=== PATIENT | male | born 1980 | race Hispanic/Latino ===

== ENCOUNTER 2020-08-12 14:51 | Emergency (ER) | payer SELFPAY ==
--- NOTE | 2020-08-12 15:48 | RAD REPORT ---
EXAM DESCRIPTION: CT - Head Brain Wo Cont - 08/12/2020 3:37 pm CLINICAL HISTORY: Near syncope Headache, drowsiness COMPARISON: <Comparisons> TECHNIQUE: All CT scans are performed using dose optimization technique as appropriate and may inclu de automated exposure control or mA/KV adjustment according to patient size. FINDINGS: No intracranial hemorrhage, hydrocephalus or extra-axial fluid collection.No areas of brai n edema or evidence of midline shift. The paranasal sinuses and mastoids are clear. The calvarium is intact. IMPRESSION: No acute intracranial abnormality.
--- NOTE | 2020-08-12 16:03 | RAD REPORT ---
EXAM DESCRIPTION: RAD - Chest Single View - 08/12/2020 3:48 pm CLINICAL HISTORY: Near syncope Chest pain. COMPARISON: <Comparisons> FINDINGS: Portable technique limits examination quality. The lungs are grossly clear. The heart is normal in size. No displaced fractures. IMPRESSION: No acute intrathoracic process suspected.
[2020-08-12 17:25] LABS: Protime INR 1.13
[2020-08-12 17:27] LABS: Absolute Lymphocytes (CBC) 1.9 K/uL (0.7-4.9); Basophils % 0.5 % (0-1.3); Hematocrit 45.3 % (39.6-49.0); Lymphocytes % 17.2 % (15.3-44.8); MPV 8.4 fL (7.6-11.3); RBC Red Blood Cell Count 5.34 M/uL (4.33-5.43)
[2020-08-12 17:36] LABS: ALT/SGPT 64 U/L (12-78); AST/SGOT 34 U/L (15-37); Alkaline Phosphatase 118 U/L (45-117); BUN Blood Urea Nitrogen 13 mg/dL (7-18); Bicarbonate 26 mmol/L (21-32); Bilirubin Direct < 0.1 mg/dL (0-0.2); Bilirubin Total 0.4 mg/dL (0.2-1.0); Glucose Level 85 mg/dL (74-106); Magnesium 2.2 mg/dL (1.8-2.4); NT PRO-BNP 41 pg/mL (<125); Potassium 3.5 mmol/L (3.5-5.1); Sodium Level 142 mmol/L (136-145); Troponin (Emerg Dept Use Only) < 0.02 ng/mL (0.0-0.045)
--- NOTE | 2020-08-12 18:01 | ER ---
Nurse's Notes [facility] Name: Neri Jim Age: 40 yrs Sex: Male : 1980 Arrival Date: 08/12/2020 Time: 14:57 Bed 7 Private MD: Diagnosis: Syncope Near Presentation: 08/12 15:14 Chief complaint: EMS states: Near syncopal episode. Coronavirus screen: Client denies kg travel out of the [place] in the last 14 days. At this time, unable to obtain information related to travel outside the [place] At this time, the client does not indicate any symptoms associated with coronavirus-19. Ebola Screen: Patient negative for fever greater than or equal to 101.5 degrees Fahrenheit, and additional compatible Ebola Virus Disease symptoms Patient denies exposure to infectious person. Patient denies travel to an Ebola-affected area in the 21 days before illness onset. Initial Sepsis Screen: Does the patient meet any 2 criteria? HR > 90 bpm. Does the patient have a suspected source of infection? No. Patient's initial sepsis screen is negative. Risk Assessment: Do you want to hurt yourself or someone else? Patient reports no desire to harm self or others. Onset of symptoms was August 12, 2020. 15:14 Method Of Arrival: EMS: [facility] kg 15:14 Acuity: JORDIN 3 kg Triage Assessment: 15:17 General: Appears in no apparent distress. Behavior is calm, cooperative, appropriate kg for age, quiet. Pain: Denies pain. Historical: - Allergies: 15:18 No Known Allergies; kg - Home Meds: 15:18 None [Active]; kg - PMHx: 15:18 None; kg - PSHx: 15:18 None; kg - Immunization history:: Adult Immunizations up to date, Client reports receiving the 2nd dose of the Covid vaccine. - Social history:: Smoking status: Patient denies any tobacco usage or history of. Screenin:17 Abuse screen: Denies threats or abuse. Denies injuries from another. Nutritional kg screening: No deficits noted. Tuberculosis screening: No symptoms or risk factors identified. Fall Risk None identified. No fall in past 12 months (0 pts). No secondary diagnosis (0 pts). IV access (20 points). Ambulatory Aid- None/Bed Rest/Nurse Assist (0 pts). Gait- Normal/Bed Rest/Wheelchair (0 pts) Mental Status- Oriented to own ability (0 pts). Total [place] Fall Scale indicates No Risk (0-24 pts). Assessment: 17:04 General: Appears in no apparent distress. Behavior is calm, cooperative, appropriate ll1 for age. Pain: Denies pain. Neuro: Level of Consciousness is awake, alert, obeys commands, Oriented to person, place, time, situation, Appropriate for age Mobile Web Application Developer are equal bilaterally Moves all extremities. Full function Gait is steady, Speech is normal, Facial symmetry appears normal, Reports a syncopal episode weakness. 18:00 Reassessment: No changes from previously documented assessment. Patient and/or family ll1 updated on plan of care and expected duration. Pain level reassessed. 18:48 Reassessment: No changes from previously documented assessment. Patient and/or family ll1 updated on plan of care and expected duration. Pain level reassessed. Patient is alert, oriented x 3, equal unlabored respirations, skin warm/dry/pink. Vital Signs: 15:14 BP 168 / 123; Pulse 105; Resp 21; Temp 98.7(O); Pulse Ox 97% on R/A; Weight 81.65 kg kg (R); Height 5 ft. 6 in. (167.64 cm) (R); Pain 0/10; 17:01 BP 159 / 106; Pulse 90; Resp 18; Pulse Ox 95% on R/A; ll1 18:47 BP 169 / 108; Pulse 91; Resp 18; Temp 98.0; Pulse Ox 98% ; ll1 15:14 Body Mass Index 29.05 (81.65 kg, 167.64 cm) kg ED Course: 14:57 Patient arrived in ED. ds1 15:17 Triage completed. kg 15:18 Star Allen NP is PHCP. pm1 15:18 Allan Anthony MD is Attending Physician. pm1 15:18 Arm band placed on left wrist. kg 15:18 No provider procedures requiring assistance completed. Maintain EMS IV. Dressing kg intact. Good blood return noted. Site clean \T\ dry. Gauge \T\ site: 20 G right wrist. 15:19 Patient has correct armband on for positive identification. kg 15:37 CT Head Brain wo Cont In Process Unspecified. EDMS 15:44 XRAY Chest (1 view) In Process Unspecified. EDMS 16:41 Patient placed in an exam room, on a stretcher. 17:00 Flower Nielson, RN is Primary Nurse. ll1 17:01 IV discontinued, intact, bleeding controlled, No redness/swelling at site. Pressure ll1 dressing applied. 17:02 Inserted saline lock: 22 gauge in right antecubital area, using aseptic technique. ll1 Blood collected. 18:48 IV discontinued, intact, bleeding controlled, No redness/swelling at site. Pressure ll1 dressing applied. Administered Medications: 16:41 Drug: NS 0.9% 1000 ml Route: IV; Rate: 1000 ml; Site: right forearm; sv 17:53 Follow up: Response: No adverse reaction; RASS: Alert and Calm (0); IV Status: ll1 Completed infusion; IV Intake: 1000ml 17:53 Drug: NS 0.9% 1000 ml Route: IV; Rate: 1000 ml; Site: right antecubital; ll1 18:47 Follow up: Response: No adverse reaction; IV Status: Completed infusion; IV Intake: ll1 1000ml Intake: 17:53 IV: 1000ml; Total: 1000ml. ll1 18:47 IV: 1000ml; Total: 2000ml. 1 Outcome: 18:00 Discharge ordered by MD. pm1 18:48 Discharged to home ambulatory. ll1 18:48 Condition: stable 18:48 Discharge instructions given to patient, Instructed on discharge instructions, follow up and referral plans. Demonstrated understanding of instructions, follow-up care. 18:49 Patient left the ED. 1 Signatures: Dispatcher [employer] EDWI Grace Obregon, Kellie Tse RN 1 Star Allen NP SINGER AND UNLOADER pm1 Flower Nielson, VIDHYA KEE ll1 Opal Hall RN RN kg
--- NOTE | 2020-08-12 18:01 | EDPHYS ---
Physician Documentation [facility] Name: Neri Jim Age: 40 yrs Sex: Male : 1980 Arrival Date: 08/12/2020 Time: 14:57 Bed 7 Private MD: ED Physician Allan Anthony HPI: 08/12 17:12 This 40 yrs old Male presents to ER via EMS with complaints of Near Syncope. pm1 17:12 The patient has experienced near-syncope. Onset: The symptoms/episode began/occurred pm1 just prior to arrival. Duration: This was a single episode. Context: occurred outdoors, Just prior to the episode the patient experienced no apparent symptoms. Associated injury: The patient did not suffer any apparent associated injury. Associated signs and symptoms: The patient has no apparent associated signs or symptoms, Pertinent negatives: chest pain, headache, shortness of breath. Current symptoms: Currently, the patient is not experiencing any symptoms. The patient has not experienced similar symptoms in the past. The patient has not recently seen a physician. Patient was walking to the synagogue and once he got to the synagogue doors he felt lightheaded and had to lean against the doors. Another person witnessed the patient's near syncopal episode and called the EMS. Patient denies any symptoms prior to syncopal episode. No injury or fall. Historical: - Allergies: 15:18 No Known Allergies; kg - Home Meds: 15:18 None [Active]; kg - PMHx: 15:18 None; kg - PSHx: 15:18 None; kg - Immunization history:: Adult Immunizations up to date, Client reports receiving the 2nd dose of the Covid vaccine. - Social history:: Smoking status: Patient denies any tobacco usage or history of. ROS: 17:12 Constitutional: Negative for fever, chills, and weight loss, Neck: Negative for injury, pm1 pain, and swelling, Cardiovascular: Negative for chest pain, palpitations, and edema, Respiratory: Negative for shortness of breath, cough, wheezing, and pleuritic chest pain, Abdomen/GI: Negative for abdominal pain, nausea, vomiting, diarrhea, and constipation, Back: Negative for injury and pain, MS/Extremity: Negative for injury and deformity, Skin: Negative for injury, rash, and discoloration. 17:12 Eyes: Negative for injury, pain, redness, and discharge, ENT: Negative for injury, pain, and discharge. 17:12 Neuro: Positive for dizziness, near syncope, Negative for headache, loss of consciousness, numbness, syncope, tingling, weakness. Exam: 17:12 Abdomen/GI: Exam negative for acute changes, Inspection: abdomen appears normal, pm1 Palpation: abdomen is soft and non-tender, in all quadrants. 17:12 Constitutional: This is a well developed, well nourished patient who is awake, alert, and in no acute distress. Head/Face: Normocephalic, atraumatic. 17:12 Back: No spinal tenderness. No costovertebral tenderness. Full range of motion. Skin: Warm, dry with normal turgor. Normal color with no rashes, no lesions, and no evidence of cellulitis. MS/ Extremity: Pulses equal, no cyanosis. Neurovascular intact. Full, normal range of motion. 17:12 Eyes: Exam is negative for acute changes, Extraocular movements: no acute changes, Conjunctiva: no acute changes, no injection, Sclera: no acute changes, icterus, is not appreciated. 17:12 ENT: Mouth: Lips: normal, Oral mucosa: normal, pink and intact, moist. 17:12 Cardiovascular: Exam negative for acute changes, Rate: normal, Rhythm: regular, Pulses: no pulse deficits are appreciated, Heart sounds: normal, normal S1and S2, Edema: is not appreciated. 17:12 Respiratory: Exam negative for acute changes, respiratory distress, shortness of breath, the patient does not display signs of respiratory distress, Respirations: normal, Breath sounds: are clear throughout. 17:12 Neuro: Exam negative for acute changes, Orientation: is normal, Mentation: is normal, Motor: is normal, moves all fours, Sensation: is normal, no obvious gross deficits. Vital Signs: 15:14 BP 168 / 123; Pulse 105; Resp 21; Temp 98.7(O); Pulse Ox 97% on R/A; Weight 81.65 kg kg (R); Height 5 ft. 6 in. (167.64 cm) (R); Pain 0/10; 17:01 BP 159 / 106; Pulse 90; Resp 18; Pulse Ox 95% on R/A; ll1 18:47 BP 169 / 108; Pulse 91; Resp 18; Temp 98.0; Pulse Ox 98% ; ll1 15:14 Body Mass Index 29.05 (81.65 kg, 167.64 cm) kg MDM: 15:48 Patient medically screened. pm1 17:42 Data reviewed: vital signs. Data interpreted: Pulse oximetry: on room air is 95 %. pm1 Interpretation: normal. Counseling: I had a detailed discussion with the patient and/or guardian regarding: the historical points, exam findings, and any diagnostic results supporting the discharge/admit diagnosis, lab results, radiology results, the need for outpatient follow up, to return to the emergency department if symptoms worsen or persist or if there are any questions or concerns that arise at home. 08/12 15:19 Order name: Basic Metabolic Panel; Complete Time: 17:39 pm1 08/12 15:19 Order name: CBC with Diff; Complete Time: 17:39 pm1 08/12 15:19 Order name: LFT's; Complete Time: 17:39 pm1 08/12 15:19 Order name: Magnesium; Complete Time: 17:39 pm1 08/12 15:19 Order name: NT PRO-BNP; Complete Time: 17:39 pm1 08/12 15:19 Order name: PT-INR; Complete Time: 17:39 pm1 08/12 15:19 Order name: CT Head Brain wo Cont; Complete Time: 16:51 pm1 08/12 15:19 Order name: Troponin (emerg Dept Use Only); Complete Time: 17:39 pm1 08/12 15:19 Order name: XRAY Chest (1 view); Complete Time: 16:51 pm1 08/12 15:19 Order name: EKG; Complete Time: 15:20 pm08/12 15:19 Order name: Cardiac monitoring; Complete Time: 16:42 pm1 08/12 15:19 Order name: EKG - Nurse/Tech; Complete Time: 16:42 pm1 08/12 15:19 Order name: IV Saline Lock; Complete Time: 16:42 pm1 08/12 15:19 Order name: Labs collected and sent; Complete Time: 16:42 pm1 08/12 15:19 Order name: O2 Per Protocol; Complete Time: 16:42 pm1 08/12 15:19 Order name: O2 Sat Monitoring; Complete Time: 16:42 pm1 Administered Medications: 16:41 Drug: NS 0.9% 1000 ml Route: IV; Rate: 1000 ml; Site: right forearm; sv 17:53 Follow up: Response: No adverse reaction; RASS: Alert and Calm (0); IV Status: ll1 Completed infusion; IV Intake: 1000ml 17:53 Drug: NS 0.9% 1000 ml Route: IV; Rate: 1000 ml; Site: right antecubital; ll1 18:47 Follow up: Response: No adverse reaction; IV Status: Completed infusion; IV Intake: ll1 1000ml Disposition Summary: 08/12/20 18:00 Discharge Ordered Location: Home pm1 Problem: new pm1 Symptoms: have improved pm1 Condition: Stable pm1 Diagnosis - Syncope Near pm1 Followup: pm1 - With: Emergency Department - When: As needed - Reason: Worsening of condition Followup: pm1 - With: Private Physician - When: 2 - 3 days - Reason: Recheck today's complaints, Continuance of care, Re-evaluation by your physician Discharge Instructions: - Discharge Summary Sheet pm1 - Near-Syncope pm1 Forms: - Medication Reconciliation Form pm1 - Thank You Letter pm1 - Antibiotic Education pm1 - Prescription Opioid Use pm1 Addendum: 08/14/2020 13:43 Co-signature as Attending Physician, Allan Anthony MD I agree with the assessment and k dr plan of care. Signatures: Dispatcher [employer] Grace [place], VIDHYA KEE Allan Anthony MD MD [facility] Star Allen NP VICE PRESIDENT pm1 Flower Nielson RN RN 1 Opal Hall RN RN kg
[2020-08-12] MEDS ORDERED: NA CHLORIDE 0.9% 1,000 ML ONE (18:05)
[2020-08-12 18:58] VITALS: BP 169/108; TEMP 98; O2SAT 98
--- NOTE | 2020-08-13 13:46 | EKG ---
Test Date: 2020-08-12 Test Time: 16:49:58 Pancake Professional: DOMI MEASUREMENT RESULTS: Intervals: Rate: 88 SC: 124 QRSD: 82 QT: 358 QTc: 433 [place]: P: 12 SC: 124 QRS: 36 T: 209 INTERPRETIVE STATEMENTS: Normal sinus rhythm ST & T wave abnormality, consider inferolateral ischemia Abnormal ECG No previous ECG available for comparison Electronically Signed On 08-13-20 13:45:35 CDT by Michael Padilla
== END 2020-08-12 18:49 | disposition home or self-care (01) ==
LOC: ER 14:51
DX: R55 Syncope and collapse (principal)
CPT/HCPCS: 36415; 70450; 71045; 80048; 80076; 83735; 83880; 84484; 85025; 85610; 93005; 96360; 96361; 99284; J7030